=== PATIENT | female | born 1980 | race Caucasian/White ===

== ENCOUNTER → 2020-05-24 13:08 | Outpatient (CLI) | payer BC, SELFPAY ==
--- NOTE | ~2020-05-24 | US_ITS ---
EXAMINATION: US thyroid EXAM DATE: 05/24/2020 13:25 INDICATION: Hypothyroidism TECHNIQUE: Multiple grayscale and Doppler images of the thyroid were obtained (by a technologist who performed the scan) and subsequently reviewed. Individual nodules and recommendations may be reporte d in accordance with TI-RADS system as designated by the 2017 ACR White Paper TI-RADS committee. The re is no prior study for comparison. FINDINGS: The right thyroid lobe measures 6.2 x 2.5 x 2.0 cm, the left measuring 6.1 x 2.5 x 2.5 cm, moderate t hyromegaly with diffusely heterogeneous thyroid echogenicity. There are 2 left thyroid lobe nodules, largest measuring 2.0 x 1.3 x 1.3 cm , solid (2 points), hyper echoic (1 point), wider than tall, smooth margin, without echogenic foci, category TR3 for this nodul e. There is a smaller left thyroid lobe nodule measuring 1.3 x 1.0 x 1.1 cm, solid (2 points), hypoe choic (2 points), wider than tall, smooth margin, without echogenic foci, category TR4 for this nodul e. IMPRESSION: Multinodular goiter. Consider one-year follow-up for left thyroid lobe nodules. Reviewed, dictated and finalized at location B. OM TURNER IMPRESSION: Multinodular goiter. Consider one-year follow-up for left thyroid l obe nodules.
== END ==
PROVIDERS: Visit Provider Obstetrics & Gynecology
DX: E03.9 Hypothyroidism, unspecified (principal); E04.2 Nontoxic multinodular goiter
CPT/HCPCS: 76536

== ENCOUNTER → 2020-10-13 13:58 | Outpatient (CLI) | payer BC, SELFPAY ==
--- NOTE | ~2020-10-13 | MM_ITS ---
EXAMINATION: MM screening [facility] BI w jason HISTORY: Baseline screening mammogram TECHNIQUE: Craniocaudal and mediolateral oblique 3-D tomosynthesis images were obtained and synthetic 2-D images were generated. CAD analysis was submitted and interpreted. COMPARISON: None, baseline BREAST PARENCHYMAL COMPOSITION: The breasts are heterogeneously dense, which may obscure small masses . FINDINGS: RIGHT BREAST: An asymmetry is present in the posterior third of the inner breast 8 cm from the nipple on the craniocaudal view. LEFT BREAST: Focal asymmetry is present in the subareolar aspect of the breast. There is also possibl e architectural distortion in the middle third of the outer breast best appreciated 8 cm from the nip ple on craniocaudal tomosynthesis image 44/84. IMPRESSION: 1. Bilateral breast findings as described above. 2. Additional mammographic views and possible breast ultrasound are recommended to evaluate for malig carol and establish a baseline given that this is the first mammographic examination. BI-RADS Category 0: Incomplete: Needs additional imaging evaluation. Reviewed, dictated and finalized at location A. IMPRESSION: 1. Bilateral breast findings as described above. 2. Additional mammographic views and possible breast ultrasound are recommended to evaluate for malignancy and establish a baseline given that this is the fir st mammographic examination. BI-RADS Category 0: Incomplete: Needs additional imaging evaluation.
== END ==
PROVIDERS: Visit Provider Nurse Practitioner Obstetrics & Gynecology
DX: Z12.31 Encounter for screening mammogram for malignant neoplasm of breast (principal); R92.8 Other abnormal and inconclusive findings on diagnostic imaging of breast
CPT/HCPCS: 77063; 77067

== ENCOUNTER → 2020-11-09 09:23 | Outpatient (CLI) | payer BC, SELFPAY ==
--- NOTE | ~2020-11-09 | MMUS_ITS ---
EXAMINATION: MM diagnostic mammo BI, US breast LT limited HISTORY: Focal asymmetry of the left breast and asymmetry of the right breast on baseline screening m ammogram TECHNIQUE: Additional 3-D tomosynthesis images of the breasts were performed and synthetic 2-D images were generated. CAD analysis was submitted and interpreted. High resolution limited left breast ultr asound was performed. COMPARISON: 10/13/2020 BREAST PARENCHYMAL COMPOSITION: The breasts are heterogeneously dense, which may obscure small masses . FINDINGS: MAMMOGRAPHIC FINDINGS: No persistent asymmetry is identified in the right breast with spot compression. Focal asymmetry in t he subareolar aspect of the left breast persists but somewhat disperses with spot compression. No yue picious mass, calcification, or architectural distortion are identified. ULTRASOUND: There is no evidence of focal abnormal solid or cystic mass in the vicinity of the subareolar focal a symmetry of the left breast. IMPRESSION: 1. No mammographic or sonographic evidence of malignancy. 2. Recommend routine screening mammography in one year. BI-RADS Category 2: Benign finding(s). Reviewed, dictated and finalized at location A. IMPRESSION: 1. No mammographic or sonographic evidence of malignancy. 2. Recommend routine screening mammography in one year. BI-RADS Category 2: Benign finding(s).
== END ==
PROVIDERS: Visit Provider Advanced Practice Midwife
DX: R92.8 Other abnormal and inconclusive findings on diagnostic imaging of breast (principal)
CPT/HCPCS: 76642; 77066

== ENCOUNTER → 2021-12-25 12:15 | Outpatient (CLI) | payer BC, SELFPAY ==
--- NOTE | ~2021-12-25 | MM_ITS ---
EXAMINATION: MM screening [facility] BI w jason HISTORY: Screening mammogram TECHNIQUE: Craniocaudal and mediolateral oblique 3-D tomosynthesis images were obtained and synthetic 2-D images were generated. CAD analysis was submitted and interpreted. COMPARISON: 11/09/2020, 10/13/2020 BREAST PARENCHYMAL COMPOSITION: The breasts are heterogeneously dense, which may obscure small masses . FINDINGS: There is no suspicious mass, calcification, or architectural distortion to suggest malignan cy in either breast. There has been no suspicious interval change. IMPRESSION: 1. No mammographic evidence of malignancy. 2. Recommend routine screening mammography in one year. BI-RADS Category 1: Negative Reviewed, dictated and finalized at location A.
== END ==
PROVIDERS: PCP Nurse Practitioner; Visit Provider Obstetrics & Gynecology
DX: Z12.31 Encounter for screening mammogram for malignant neoplasm of breast (principal)
CPT/HCPCS: 77063; 77067

== ENCOUNTER 2022-08-27 10:04 | Outpatient (CLI) | payer BC, SELFPAY ==
--- NOTE | ~2022-08-27 | US_ITS ---
EXAMINATION: US thyroid DATE: 08/27/2022 10:51 INDICATION: Congenital hypothyroidism with diffuse goiter. TECHNIQUE: Multiple ultrasound images of the thyroid were obtained. COMPARISON: ultrasound 05/24/20 FINDINGS: The right thyroid lobe measures 4.0 x 1.9 x 2.4 cm. The left thyroid lobe measures 5.9 x 2.5 x 1.8 c m. The thyroid is diffusely hypoechoic and heterogeneous with increased vascularity. In the left thy roid lobe, there is a 1.6 cm solid, hyperechoic, wider than tall nodule with smooth margin without ec hogenic foci (TI-RADS TR3), decreased from 2.0 cm on 05/24/20. IMPRESSION: 1. Heterogeneous, hypervascular thyroid, consistent with chronic lymphocytic (Annabel) thyroiditis. 2. Left thyroid nodule with interval decrease in size. Thyroid ultrasound is recommended in 2 years. Reviewed, dictated and finalized at location A. CLEANER IMPRESSION: 1. Heterogeneous, hypervascular thyroid, consistent with chronic lymphocytic (H ashimoto) thyroiditis. 2. Left thyroid nodule with interval decrease in size. Thyroid ultrasound is re commended in 2 years.
== END 2022-08-27 10:05 | disposition home or self-care (01) ==
PROVIDERS: PCP Nurse Practitioner; Visit Provider Nurse Practitioner
DX: E03.0 Congenital hypothyroidism with diffuse goiter (principal)
CPT/HCPCS: 76536

== ENCOUNTER 2023-01-24 09:51 | Outpatient (CLI) | payer BC, SELFPAY ==
--- NOTE | ~2023-01-24 | MM_ITS ---
EXAMINATION: MM screening [facility] BI w jason HISTORY: Screening mammogram TECHNIQUE: Craniocaudal and mediolateral oblique 3-D tomosynthesis images were obtained and synthetic 2-D images were generated. CAD analysis was submitted and interpreted. COMPARISON: 12/25/2021, 11/09/2020, 10/13/2020 BREAST PARENCHYMAL COMPOSITION: There are scattered areas of fibroglandular density. FINDINGS: No suspicious mass, calcification, or architectural distortion are identified in either isela ast to suggest malignancy. There has been no suspicious interval change. IMPRESSION: 1. No mammographic evidence of malignancy. 2. Recommend routine screening mammography in one year. BI-RADS Category 1: Negative Reviewed, dictated and finalized at location A.
== END 2023-01-24 09:52 | disposition home or self-care (01) ==
LOC: ANHIMG 09:52
PROVIDERS: PCP Nurse Practitioner; Visit Provider Nurse Practitioner
DX: Z12.31 Encounter for screening mammogram for malignant neoplasm of breast (principal)
CPT/HCPCS: 77063; 77067

== ENCOUNTER 2024-02-10 15:07 | Outpatient (CLI) | payer BC, SELFPAY ==
--- NOTE | ~2024-02-10 | MM_ITS ---
EXAMINATION: MM screening [facility] BI w jason HISTORY: Screening TECHNIQUE: Craniocaudal and mediolateral oblique 3-D tomosynthesis images were obtained and synthetic 2-D images were generated. CAD analysis was submitted and interpreted. COMPARISON: Comparison to multiple prior studies sequentially, with oldest reviewed study dated 10/13. BREAST PARENCHYMAL COMPOSITION: Dense: The breasts are heterogeneously dense, which may obscure small masses FINDINGS: There is no evidence of suspicious mass, calcification, or architectural distortion to sugg est malignancy in either breast. There has been no suspicious interval change. IMPRESSION: 1. No mammographic evidence of malignancy. 2. Recommend routine screening mammography in one year. BI-RADS Category 1: Negative Reviewed, dictated and finalized at location B.
== END 2024-02-10 15:08 | disposition home or self-care (01) ==
LOC: ANHIMG 15:08
PROVIDERS: PCP Nurse Practitioner; Visit Provider Nurse Practitioner
DX: Z12.31 Encounter for screening mammogram for malignant neoplasm of breast (principal)
CPT/HCPCS: 77063; 77067